=== PATIENT | male | born 1965 | race Caucasian/White ===

== ENCOUNTER → 2017-03-19 | Emergency (ER) | payer MEDICAID, OTHER ==
[~2017-03-19] VITALS: Wt 100.5 kg
[~2017-03-19] MED LIST: CLOT30CR24 TOP; GLIM4TAB PO; MTF1000T PO
--- NOTE | 2017-03-19 16:29 | ERD ---
ER Documentation Chief Complaint Date/Time DATE: 03/19/17 TIME: 16:25 Chief Complaint REDNESS, BURNING ON PENIS HPI This is a 52-year-old male who states he has a fungal rash on his penis. He knows this because he has had this before and he had good relief of the symptoms with antifungal cream but he does not have any cream left over. He denies any dysuria hematuria or increased urinary frequency. He denies any abnormal penile discharge. No fever. No nausea vomiting. ROS All systems reviewed and are negative except as per history of present illness. Medications Home Meds Active Scripts Clotrimazole* (Clotrimazole* AF) 1% - 30 Gm Cream.gm., 1 APPLIC TOP BID for 7 Days, TUB Prov:MANE PERES PA-C 03/19/17 Reported Medications Glimepiride* (Glimepiride*) 4 Mg Tablet, 4 MG PO HS 05/13/13 Metformin* (Glucophage*) 1,000 Mg Tablet, 1000 MG PO BID 05/13/13 Allergies Allergies: Coded Allergies: No Known Allergy (Unverified , 02/11/14) PMhx/Soc History of Surgery: No Hx Neurological Disorder: No Hx Respiratory Disorders: No Hx Cardiac Disorders: No Hx Psychiatric Problems: No Hx Miscellaneous Medical Probl: Yes (DM) Hx Alcohol Use: No Hx Substance Use: No Hx Tobacco Use: No FmHx Family History: diabetes Physical Exam Vitals Vital Signs Date Time Temp Pulse Resp B/P Pulse Ox O2 Delivery O2 Flow Rate FiO2 03/19/17 15:53 98.4 95 17 127/83 95 Physical Exam General: well developed, well nourished, alert, nontoxic, no distress Head: normocephalic, atraumatic Neck: Supple, nontender, no lymphadenopathy, no midline tenderness Respiratory: Clear to auscaultation bilaterally, speaks in full sentences, no use of accesory muscles or labored breathing, no rales, ronchi, or wheezing Cardiovascular: RRR, No murmurs GI: soft, non tender, non distended, negative murphys sign, negative mcburneys point tenderness, no cva tenderness bilaterally, no rebound or guarding gu: mild redness on glans of penis consistent with balanitis, testicles non tender Procedures/MDM Patient has balanitis which was confirmed on physical exam. He has had this before and has had good relief of his symptoms with antifungal creams I gave him prescription for clotrimazole. Recommended this patient follow up with her primary care doctor within 48 hours or return to the emergency room for any worsening of symptoms. However this time I do believe there is suitable for outpatient management. I answered all their questions and they agreed with the plan and were discharged home. Departure Diagnosis: Primary Impression: Balanitis Condition: Stable Patient Instructions: Balanitis Additional Instructions: Llame al doctor CORDELL y olivier bulmaro CARLOS PARA DENTRO DE 1-2 MEJIA.Dgale a la secretaria que nosotros le instruimos hacer esta carlos.Avise o llame si thomas condicin se empeora antes de la carlos. Regresa aqui si peor o no mejor. MANE PERES PA-C Mar 19, 2017 16:29
== END | disposition home or self-care (01) ==
LOC: FTE 15:51
DX: N48.1 Balanitis (principal); E11.9 Type 2 diabetes mellitus without complications; Z79.84 Long term (current) use of oral hypoglycemic drugs
CPT/HCPCS: 99283

== ENCOUNTER 2017-12-16 12:51 | Emergency (ER) | END 2017-12-16 14:37 | disposition home or self-care (01) ==

== ENCOUNTER 2018-04-09 09:57 | Emergency (ER) | END 2018-04-09 10:55 | disposition home or self-care (01) ==

== ENCOUNTER 2018-10-17 17:43 | Emergency (ER) | payer OTHER ==
[~2018-10-17] VITALS: Ht 167.6 cm; Wt 97.7 kg
[~2018-10-17 17:43] MED LIST changes: +BEN25 PO; +IBUP-1542 PO; +NAPH15DR OP
[2018-10-17 17:47] VITALS: Ht 167.6 cm; Wt 97.7 kg
[2018-10-17] MEDS ORDERED: MTF1000T PO (20:21)
[2018-10-17] MEDS ORDERED: SITA100T11 PO (20:21)
[2018-10-17] MEDS ORDERED: IBUPROFEN 600 MG TAB PO ONE (20:30)
[2018-10-17] MEDS ORDERED: IBUP-1542 PO (21:05)
[2018-10-17 21:34] VITALS: BP 105/74; PULSE 87; RESP 19
--- NOTE | 2018-10-18 00:09 | ERD ---
ER Documentation Chief Complaint Chief Complaint Complains of abdominal pain x 2 days HPI 53-year-old male with a history of diabetes presenting with complaints of burning anterior thigh pain from his knees to his hips bilaterally. The pain is intermittent, 5 out of 10, described as burning. No alleviating factors. He has not tried any qnwk-wly-[id number] pain medications for his symptoms. He does complain of associated lower back pain that is chronic for him, unchanged recently. No associated urinary or bowel movement changes. No associated weakness. No recent falls or injuries. Although chief complaint states that the patient has had abdominal pain for 2 days, patient denies this. He denies any hematuria or dysuria. No chest pain or shortness of breath. ROS All systems reviewed and are negative except as per history of present illness. Medications Home Meds Active Scripts Ibuprofen* (Motrin*) 600 Mg Tab, 600 MG PO Q6H PRN for PAIN AND OR ELEVATED TEMP, #30 TAB Prov:JUANA FORBES MD 10/17/18 Reported Medications Sitagliptin* (Januvia*) 100 Mg Tablet, 100 MG PO DAILY, #30 TAB 10/17/18 Metformin* (Glucophage*) 1,000 Mg Tablet, 1000 MG PO WITH BREAKFAST DINNE, #60 TAB 10/17/18 Discontinued Reported Medications Glimepiride* (Glimepiride*) 4 Mg Tablet, 4 MG PO HS 05/13/13 Metformin* (Glucophage*) 1,000 Mg Tablet, 1000 MG PO BID 05/13/13 Discontinued Scripts Clotrimazole* (Clotrimazole* AF) 1% - 30 Gm Cream.gm., 1 APPLIC TOP BID for 7 Days, #1 TUB Prov:WALTER DALLAS PA-C 04/09/18 Ibuprofen* (Motrin*) 600 Mg Tab, 600 MG PO Q6H PRN for PAIN, #15 TAB Prov:ERICKA GONSALVES MD 12/16/17 Diphenhydramine Hcl* (Benadryl*) 25 Mg Cap, 25 MG PO Q6H PRN for ITCHING, #20 CAP Prov:ERICKA GONSALVES MD 12/16/17 Naphazoline Hcl/Phenir Mal (Naphcon-A Eye Drops) 15 Ml Drops, 15 ML OP QID for 7 Days, BOTTLE Prov:ERICKA GONSALVES MD 12/16/17 Clotrimazole* (Clotrimazole* AF) 1% - 30 Gm Cream.gm., 1 APPLIC TOP BID for 7 Days, TUB Prov:MANE PERES PA-C 03/19/17 Allergies Allergies: Coded Allergies: No Known Allergy (Unverified , 10/17/18) PMhx/Soc History of Surgery: No Anesthesia Reaction: No Hx Neurological Disorder: No Hx Respiratory Disorders: No Hx Cardiac Disorders: Yes (HLD) Hx Psychiatric Problems: No Hx Miscellaneous Medical Probl: Yes (DM) Hx Alcohol Use: No Hx Substance Use: No Hx Tobacco Use: No Smoking Status: Never smoker FmHx Family History: No coronary disease Physical Exam Vitals Vital Signs Date Temp Pulse Resp B/P (MAP) Pulse Ox O2 O2 Flow FiO2 Time Delivery Rate 10/17/18 87 19 105/74 96 Room Air 21:34 (84) 10/17/18 98.2 100 20 115/68 96 17:47 (84) Physical Exam Const: No acute distress Head: Atraumatic Eyes: Normal Conjunctiva ENT: Normal External Ears, Nose and Mouth. Neck: Full range of motion. No meningismus. Resp: Clear to auscultation bilaterally Cardio: Regular rate and rhythm, no murmurs Abd: Soft, non tender, non distended. Normal bowel sounds Skin: No petechiae or rashes Back: No midline or flank tenderness Ext: No cyanosis, or edema Neur: Awake and alert, no facial asymmetry, normal speech, strength intact in all 4 extremities. 2+ distal pulses Psych: Normal Mood and Affect Result Diagram: 10/17/18202710/17/182027 Results 24 hrs Laboratory Tests Test 10/17/18 20:28 White Blood Count 7.6 10^3/ul Red Blood Count 4.37 10^6/ul Hemoglobin 13.8 g/dl Hematocrit 39.7 % Mean Corpuscular Volume 90.8 fl Mean Corpuscular Hemoglobin 31.6 pg Mean Corpuscular Hemoglobin Concent 34.8 g/dl Red Cell Distribution Width 11.9 % Platelet Count 216 10^3/UL Mean Platelet Volume 9.5 fl Immature Granulocytes % 0.100 % Neutrophils % 57.3 % Lymphocytes % 29.5 % Monocytes % 10.6 % Eosinophils % 2.1 % Basophils % 0.4 % Nucleated Red Blood Cells % 0.0 /100WBC Immature Granulocytes # 0.010 10^3/ul Neutrophils # 4.4 10^3/ul Lymphocytes # 2.3 10^3/ul Monocytes # 0.8 10^3/ul Eosinophils # 0.2 10^3/ul Basophils # 0.0 10^3/ul Nucleated Red Blood Cells # 0.0 10^3/ul Sodium Level 138 mmol/L Potassium Level 4.1 mmol/L Chloride Level 99 mmol/L Carbon Dioxide Level 26 mmol/L Anion Gap 13 Blood Urea Nitrogen 13 mg/dl Creatinine 0.58 mg/dl Est Glomerular Filtrat Rate mL/min > 60 mL/min Glucose Level 210 mg/dl Calcium Level 9.5 mg/dl Current Medications Medications Dose Sig/Mary Kay Start Time Status Last (Trade) Ordered Route PRN Stop Time Admin Dose Reason Admin Ibuprofen 600 mg ONCE ONCE 10/17/18 DC 10/17/18 (Motrin) PO 20:30 20:16 10/17/18 20:31 Procedures/MDM EMERGENT LABS AND DIAGNOSTIC STUDIES: Lab Results above were reviewed and interpreted by me. CBC: no anemia or evidence of infection CMP: No evidence of electrolyte abnormality, renal failure, hypoglycemia, Initial Nursing notes reviewed. Previous Medical Records requested via the Electronic Health Record. EMERGENCY DEPARTMENT COURSE / MEDICAL DECISION MAKING: Patient is presenting with neuropathic pain of his anterior thighs of unclear etiology. However he is neurovascularly intact on exam. There are no signs of acute surgical abdomen. I do not suspect cord compression or cauda equina. I explained to the patient that the cause of his pain is unclear at this time but likely nonemergent. I do not suspect vascular emergency. Follow-up with PCP was recommended if his pain continues. He was treated with ibuprofen here with good response. Prescription for ibuprofen given with strict return precautions. Departure Diagnosis: Primary Impression: Neuropathic pain, leg, bilateral Condition: Stable Patient Instructions: Pain, Uncertain Cause (Acute) JUANA FORBES MD Oct 18, 2018 00:09
== END 2018-10-17 21:35 | disposition home or self-care (01) ==
LOC: E/R 17:43
DX: G57.93 Unspecified mononeuropathy of bilateral lower limbs (principal); E11.9 Type 2 diabetes mellitus without complications; Z79.84 Long term (current) use of oral hypoglycemic drugs
CPT/HCPCS: 36415; 80048; 85025; 93005; Z7502; Z7610; 99283

== ENCOUNTER 2019-01-04 16:53 | Emergency (ER) | payer SELFPAY ==
[~2019-01-04] VITALS: Ht 175.3 cm; Wt 90.9 kg
[~2019-01-04 16:53] MED LIST changes: -BEN25 PO; -CLOT30CR24 TOP; -GLIM4TAB PO; -NAPH15DR OP; +SITA100T11 PO
[2019-01-04 16:58] VITALS: BP 119/83; PULSE 96; RESP 22; Ht 175.3 cm; Wt 90.9 kg
[2019-01-05] MEDS ORDERED: CETI10TA19 PO (15:40)
[2019-01-05] MEDS ORDERED: KETO5DRO22 OP (15:40)
== END 2019-01-04 20:41 | disposition left against medical advice (07) ==
LOC: E/R 16:53
DX: Z53.21 Procedure and treatment not carried out due to patient leaving prior to being seen by health care provider (principal)
CPT/HCPCS: 82962

== ENCOUNTER 2019-01-05 12:29 | Emergency (ER) | payer OTHER ==
[~2019-01-05] VITALS: Ht 175.3 cm; Wt 94.0 kg
[2019-01-05 12:53] VITALS: BP 142/81; PULSE 98; RESP 17; Ht 175.3 cm; Wt 94.0 kg
[2019-01-05] MEDS ORDERED: DIPHENHYDRAMINE 2.5 MG/ML 5ML CUP PO ONE (14:30)
[2019-01-05] MEDS ORDERED: PREDNISOLONE ACET 1% 5 ML OPH BOTH EYES ONE (14:30)
[2019-01-05] MEDS ORDERED: CETI10TA19 PO (15:40)
[2019-01-05] MEDS ORDERED: KETO5DRO22 OP (15:40)
--- NOTE | 2019-01-05 18:47 | ERD ---
ER Documentation Chief Complaint Chief Complaint ALLERGIC REACTION TO POLLEN HPI History of Present Illness: 53-year-old male with past medical history of diabetes coming in today with complaint of allergic reaction. Patient reports pulling weeds with significant amount of pollen and he felt pollen flying to his eyes. Patient reports similar reaction last time he had an exposure to pollen. No signs of respiratory distress. No shortness of breath. At home pharmacological/nonpharmacological treatment for symptoms: Denies Denies social concerns; Denies recent foreign travel ROS All systems reviewed and are negative except as per history of present illness. Medications Home Meds Active Scripts Ketotifen Fumarate (KETOTIFEN FUMARATE) 5 Ml Drops, 1 DROP OP BID for eye inflammation, #1 BOTTLE Prov:ARLENE ORTIZ V PRIMARY SUBSTANCE ABUSE COUNSELOR 01/05/19 Cetirizine Hcl* (Cetirizine Hcl*) 10 Mg Tablet, 10 MG PO DAILY for allergies/cough/eye irritation, #30 TAB Prov:ARLENE ORTIZ V PRIMARY SUBSTANCE ABUSE COUNSELOR 01/05/19 Ibuprofen* (Motrin*) 600 Mg Tab, 600 MG PO Q6H PRN for PAIN AND OR ELEVATED TEMP, #30 TAB Prov:JUANA FORBES MD 10/17/18 Reported Medications Sitagliptin* (Januvia*) 100 Mg Tablet, 100 MG PO DAILY, #30 TAB 10/17/18 Metformin* (Glucophage*) 1,000 Mg Tablet, 1000 MG PO WITH BREAKFAST DINNE, #60 TAB 10/17/18 Allergies Allergies: Coded Allergies: No Known Allergy (Unverified , 10/17/18) PMhx/Soc Medical and Surgical Hx: pt denies Surgical Hx History of Surgery: No Anesthesia Reaction: No Hx Neurological Disorder: No Hx Respiratory Disorders: No Hx Cardiac Disorders: Yes (HLD) Hx Psychiatric Problems: No Hx Miscellaneous Medical Probl: Yes (DM) Hx Alcohol Use: Yes (former) Hx Substance Use: No Hx Tobacco Use: Yes Smoking Status: Former smoker FmHx Family History: diabetes; No coronary disease Physical Exam Vitals Vital Signs Date Temp Pulse Resp B/P (MAP) Pulse Ox O2 O2 Flow FiO2 Time Delivery Rate 01/05/19 98.3 98 17 142/81 96 12:53 (101) Physical Exam Const: No acute distress Head: Atraumatic Eyes: Injected sclera ENT: Normal External Ears, Mouth no oropharynx swelling, . Nasal mucosa erythematous, clear rhinorrhea. Neck: Full range of motion. No meningismus. Resp: Clear to auscultation bilaterally Cardio: Regular rate and rhythm, no murmurs Abd: Soft, non tender, non distended. Normal bowel sounds Skin: No petechiae or rashes Back: No midline or flank tenderness Ext: No cyanosis, or edema Neur: Awake and alert Psych: Normal Mood and Affect Results 24 hrs Current Medications Medications Dose Sig/Mary Kay Start Time Status Last (Trade) Ordered Route PRN Stop Time Admin Dose Reason Admin 25 mg ONCE ONCE 01/05/19 DC 01/05/19 Diphenhydrami PO 14:30 14:40 ne HCl 01/05/19 14:31 (Benadryl Liquid Cup) 1 drop ONCE ONCE 01/05/19 DC 01/05/19 Prednisolone BOTH EYES 14:30 15:39 Acetate 01/05/19 14:31 (Pred-Forte 1%) Procedures/MDM ED course includes a thorough examination and history. ED course includes eyewash. Medications: Diphenhydramine, prednisolone ophthalmologic drops. Imaging: --- Labs: --- Low suspicion for life-threatening medical emergency. Low suspicion for ophthalmology emergency that requires hospitalization or immediate interventions. Patient denies any changes in visual acuity. Otherwise healthy patient presenting with constellation of symptoms likely representing uncomplicated allergic conjunctivitis and allergic rhinitis as characterized by history, physical exam findings. No respiratory distress, otherwise relatively well appearing and nontoxic. Patient reporting decrease in itching to eyes. Patient reports he feels that inflammation has decreased. Injection has decreased. Patient educated on diagnoses, prescriptions, follow-up care, return precautions. Strict return precautions given for worsening condition; questions answered discharge. Disposition for discharge with followup in 2 days with PCP/clinic. Departure Diagnosis: Primary Impression: Allergic conjunctivitis of both eyes and rhinitis Condition: Stable Patient Instructions: Conjunctivitis, Allergic Referrals: COMM[facility] CL[facility] YOU HAVE RECEIVED A MEDICAL SCREENING EXAM AND THE RESULTS INDICATE THAT YOU DO NOT HAVE A CONDITION THAT REQUIRES URGENT TREATMENT IN THE EMERGENCY DEPARTMENT. FURTHER EVALUATION AND TREATMENT OF YOUR CONDITION CAN WAIT UNTIL YOU ARE SEEN IN YOUR DOCTORS OFFICE WITHIN THE NEXT 1-2 DAYS. IT IS YOUR RESPONSIBILITY TO MAKE AN APPOINTMENT FOR FOLOW-UP CARE. IF YOU HAVE A PRIMARY DOCTOR --you should call your primary doctor and schedule an appointment IF YOU DO NOT HAVE A PRIMARY DOCTOR YOU CAN CALL OUR PHYSICIAN REFERRAL HOTLINE AT IF YOU CAN NOT AFFORD TO SEE A PHYSICIAN YOU CAN CHOSE FROM THE FOLLOWING [facility] [address] [facility] [address] [facility] [address] [facility] [address] [facility] [address] [facility]. [facility] [address] [facility] [facility] YOU HAVE RECEIVED A MEDICAL SCREENING EXAM AND THE RESULTS INDICATE THAT YOU DO NOT HAVE A CONDITION THAT REQUIRES URGENT TREATMENT IN THE EMERGENCY DEPARTMENT. FURTHER EVALUATION AND TREATMENT OF YOUR CONDITION CAN WAIT UNTIL YOU ARE SEEN IN YOUR DOCTORS OFFICE WITHIN THE NEXT 1-2 DAYS. IT IS YOUR RESPONSIBILITY TO MAKE AN APPOINTMENT FOR FOLOW-UP CARE. IF YOU HAVE A PRIMARY DOCTOR --you should call your primary doctor and schedule and appointment IF YOU DO NOT HAVE A PRIMARY DOCTOR YOU CAN CALL OUR PHYSICIAN REFERRAL HOTLINE AT . IF YOU CAN NOT AFFORD TO SEE A PHYSICIAN YOU CAN CHOSE FROM THE FOLLOWING [facility]: [facility] [address] [place] [address] [facility] [address] [place] [address] [facility] [address] [place] [address] Additional Instructions: Thank you very much for allowing us to participate in your care. Your health and safety is our top priority at [facility]. It is important to read all discharge instructions and education provided in your discharge packet. Call your primary care doctor TOMORROW for an appointment during the next 2-4 days and bring all the information and medications prescribed. Have prescriptions filled and follow precisely the directions on the label. -Use the eyedrops that were given to you during the hospital only for 3 more days. This is a steroid. This will help with inflammation. -Cetirizine as an antihistamine that should not cause drowsiness; take this medication every day for allergy-like symptoms/cough/runny nose. -Ketotifen fumarate is a eyedrop that will help with allergy-like eye irritation. Use medication as prescribed for the next few days then as needed. If the symptoms get worse and your provider is unavailable, return to the Emergency Department immediately. ARLENE ORTIZ NP Jan 05, 2019 18:47
== END 2019-01-05 16:02 | disposition home or self-care (01) ==
LOC: FTE 12:29
DX: J30.1 Allergic rhinitis due to pollen (principal); H10.13 Acute atopic conjunctivitis, bilateral; E11.9 Type 2 diabetes mellitus without complications; Z79.84 Long term (current) use of oral hypoglycemic drugs; Z87.891 Personal history of nicotine dependence
CPT/HCPCS: Z7502; Z7610; 99283